=== PATIENT | male | born 1970 | race Caucasian/White ===

== ENCOUNTER 2022-10-13 09:54 | Emergency (ER) | payer OTHER ==
[~2022-10-13] VITALS: Ht 180.3 cm; Wt 83.9 kg
[2022-10-13 10:10] VITALS: BP_SYST 111; PULSE 81; RESP 18; TEMP 98; O2SAT 98
[2022-10-13] MEDS ORDERED: DIPHTH,PERTUSS(ACELL),TET VAC 0.5 ML VIAL (Tdap) I.M. ONE (10:15)
[2022-10-13] MEDS ORDERED: BACITRACIN 1 GM OINT TP ONE (10:15)
[2022-10-13] MEDS ORDERED: LIDOCAINE 1% 10 MG/ML, 20 ML MDV INJ ONE (10:15)
[2022-10-13] MEDS ORDERED: IBUPROFEN 800 MG TABLET PO ONE (10:30)
[2022-10-13] MEDS ORDERED: IBUP-1971 PO (11:53)
[2022-10-13 12:20] VITALS: BP_SYST 115; PULSE 82; RESP 18; TEMP 98; O2SAT 98
== END 2022-10-13 12:18 | disposition home or self-care (01) ==
LOC: SED 09:54
DX: S81.012A Laceration without foreign body, left knee, initial encounter (principal); Z79.899 Other long term (current) drug therapy; W26.8XXA Contact with other sharp object(s), not elsewhere classified, initial encounter; Y93.89 Activity, other specified; Y92.89 Other specified places as the place of occurrence of the external cause; Y99.8 Other external cause status
CPT/HCPCS: 99283; 73564; 12005; J2001; 90715